=== PATIENT | male | born 1970 | race Caucasian/White ===

== ENCOUNTER 2022-01-13 14:51 | Emergency (ER) | payer SELFPAY ==
[2022-01-13 14:54] VITALS: BP 220/120; PULSE 90; RESP 18; TEMP 36.6; O2SAT 97; BMI 33.0
[2022-01-13 15:23] LABS: Add Manual Diff / Slide Review NO; Basophils Absolute Auto 0 /uL (0-100); Basophils Percent Auto 0.5 % (0-2); Eosinophils Absolute Auto 100 /uL (0-450); Eosinophils Percent Auto 1.3 % (2-4); Hematocrit 46.1 % (41-53); Hemoglobin 15.3 g/dL (13.5-17.5); Lymphocytes Absolute Auto 2300 /uL (1100-4500); Lymphocytes Percent Auto 29.8 % (25-40); Mean Corpuscular HGB Conc 33.1 % (30-36); Mean Corpuscular Volume 84.4 fL (80-100); Monocytes Absolute Auto 700 /uL (0-900); Monocytes Percent Auto 8.6 % (3-14); Neutrophils Absolute Auto 4600 /uL (1500-7000); Neutrophils Percent Auto 59.8 % (50-75); Platelet Count 232 X10^3/uL (150-400); Red Blood Cell Count 5.46 X10^6/uL (4.5-5.9); Red Cell Distribution Width 13.1 % (11.6-14.8); White Blood Cell Count 7.7 X10^3/uL (4.5-11.0)
[2022-01-13 15:41] LABS: Alanine Aminotransferase 51 IU/L (<50); Albumin 4.7 g/dL (3.5-5.0); Albumin Globulin Ratio 1.5 (1.0-2.8); Alkaline Phosphatase 83 U/L (38-126); Aspartate Aminotransferase 38 IU/L (17-59); BUN Creatinine Ratio 13.1 (6-22); Bilirubin Total 0.8 mg/dL (0.2-1.3); Blood Urea Nitrogen 13 mg/dL (9-20); Calcium 9.2 mg/dL (8.4-10.2); Carbon Dioxide 28 mmol/L (22-32); Chloride 104 mmol/L (98-107); Creatine Kinase 480 U/L (55-170); Estimated Glomerular Filt Rate > 60 mL/min (>60); Globulin 3.1 g/dL (1.7-4.1); Glucose 142 mg/dL (70-100); HEMOLYSIS 31 (0-50); Lipase 37 U/L (23-300); Magnesium 2.1 mg/dL (1.6-2.3); Sodium 142 mmol/L (137-145); Total Protein 7.8 g/dL (6.3-8.2)
[2022-01-13 15:51] LABS: Troponin I < 0.012 ng/mL (0.01-0.034)
[2022-01-13 15:55] LABS: CKMB % Relative Index 0.8 % (1.5-5.0); Creatine Kinase MB 3.73 ng/mL (<2.37)
--- NOTE | 2022-01-13 17:36 | PC.NURSE ---
Talked with pt about his HTN 214/113. It appears his primary reason for not treating HTN is no insurance and limited household income. Arrives today with weeping LRE cellulitis. LRE is dark purple in color, overly warm, pitting edema and skin breakdown. LLE has pitting edema, as well.
--- NOTE | 2022-01-13 17:43 | PC.NURSE ---
Hx of LRE cellulitis over the past year.
[2022-01-13 17:45] LABS: Lactate (Lactic Acid) 1.9 mmol/L (0.7-2.1)
[2022-01-13 17:46] VITALS: BP 214/113; PULSE 76; RESP 18; O2SAT 97
--- NOTE | 2022-01-13 17:55 | ED_ITS ---
HPI - Wound/Laceration <Shannan Verma PA-C - Last Filed: 01/13/22 19:27> General Chief Complaint: Wound/Laceration Stated Complaint: Cellulitis in Rt Leg, High BP Time Seen by Provider: 01/13/22 17:18 Source: patient Mode of arrival: Ambulatory History of Present Illness HPI narrative: 51-year-old male presents with concern for possible cellulitis of his right lower leg. Patient states that he had a similar infection last year that was ?much worse? in September 2020. Currently he is concerned because he thinks that he scraped his leg in the last 3-7 days while compressing/staning on some trash. He was wearing pants but an abrasion/scrape occurred on the front of his trinh and has become infected. He says in the last 2-3 days he has noticed some redness developing and clearish yellow slight drainage started today. States that last year when this occurred he was seen at urgent care and got a shot of m edication and was sent home on antibiotic which he thinks was Keflex. Patient does state that ever since he had the infection last year his leg has remained purplish and never returned to normal coloration. He feels like he has normal sensation in his lower extremities, he has had slight discomfort and pain associated with this developing infection but denies difficulty with walking, pain in his knee or ankle joint; he endorses chronic swelling in his feet and lower extremities and does not feel it has changed since the infection developed. He also denies fevers, chills, nausea, vomiting, fatigue, shortness of breath, dizziness, chest pain or any other symptoms. Patient endorses a history of chronic hypertension he states he was on blood pressure medicine ?a long time ago?. He does not currently have a PCP. He is concerned about it and is interested in starting blood pressure medication. He is a long-time smoker, smokes about 5 cigarettes a day. Related Data Previous Rx's Medication Instructions Recorded doxycycline hyclate 100 mg capsule 100 mg PO BID 10 days #20 caps 01/13/22 hydrochlorothiazide 25 mg tablet 25 mg PO DAILY HTN #90 tabs 01/13/22 Allergies Allergy/AdvReac Type Severity Reaction Status Date / Time No Known Drug Allergies Allergy Unverified 01/13/22 14:29 Review of Systems <Shannan Verma PA-C - Last Filed: 01/13/22 19:27> Review of Systems Narrative: Unremarkable except as noted in the HPI Patient History <Shannan Verma PA-C - Last Filed: 01/13/22 19:27> Social History Smoking Status: Current some day smoker Smoking Status: Current some day smoker alcohol intake frequency: 0-2 drinks per day Substance Use Type: methamphetamine Exam <Shannan Verma PA-C - Last Filed: 01/13/22 19:27> Narrative Exam Narrative: GENERAL: 51 year old patient appears stated age. Obese, chronically ill- appearing, Well-developed patient, in mild distress. HEAD: Atraumatic. Normocephalic. EYES: Pupils equal round and reactive. Extraocular motions intact. No scleral icterus. No injection or drainage. ENT: Nose without bleeding, purulent drainage. Airway patent. NECK: Trachea midline. CARDIOVASCULAR: Regular rate and rhythm without murmurs, gallops, or rubs. RESPIRATORY: Clear to auscultation. Breath sounds equal bilaterally. No wheezes, rales, or rhonchi. GASTROINTESTINAL: Abdomen protuberant nondistended. EXTREMITIES: Patient has moderate bilateral nonpitting edema in both lower extremities and feet. Calves and ankles are equal in size. The anterior right trinh has an area of purplish discoloration consistent with chronic venous stasis/scarring approximately 8 by 8 in. Near the superior border of this region there is an area of moderate erythema with slight tenderness, slight swelling, and mild drainage that is serous appearing in nature, clearish yellow. No other edema or joint tenderness. NEURO: AOx3. SKIN: See EXTREMITIES No rash or erythema of visible areas Initial Vital Signs Initial Vital Signs: Vital Signs Temperature 98 F 01/13/22 14:54 Pulse Rate 90 01/13/22 14:54 Respiratory Rate 18 01/13/22 14:54 Blood Pressure 220/120 H 01/13/22 14:54 Pulse Oximetry 97 01/13/22 14:54 Oxygen Delivery Method 01/13/22 14:54 <Aileen Tirado DO - Last Filed: 01/17/22 13:44> Initial Vital Signs Initial Vital Signs: Vital Signs Temperature 98 F 01/13/22 14:54 Pulse Rate 90 01/13/22 14:54 Respiratory Rate 18 01/13/22 14:54 Blood Pressure 220/120 H 01/13/22 14:54 Pulse Oximetry 97 01/13/22 14:54 Oxygen Delivery Method 01/13/22 14:54 Course <Shannan Verma PA-C - Last Filed: 01/13/22 19:27> Orders Ordered: Discontinued Medications Doxycycline Hyclate (Doxycycline Hyclate 100 Mg Tablet) 100 mg PO NOW ONE Stop: 01/13/22 18:16 Last Admin: 01/13/22 18:25 Dose: 100 mg Documented By: CARMELINA Hydrochlorothiazide (Hydrochlorothiazide 25 Mg Tablet) 25 mg PO NOW ONE Stop: 01/13/22 17:55 Last Admin: 01/13/22 18:00 Dose: 25 mg Documented By: CARMELINA(2) Labetalol HCl (Labetalol 20 Mg/4 Ml Syringe) 10 mg IV NOW ONE Stop: 01/13/22 17:55 Last Admin: 01/13/22 18:01 Dose: 10 mg Documented By: CARMELINA(2) Vital Signs Vital signs: Vital Signs - 8 hr 01/13/22 14:54 01/13/22 17:46 01/13/22 18:37 Temperature 98 F Pulse Rate 90 76 75 Respiratory Rate 18 18 Blood Pressure 220/120 H 214/113 H 185/100 H Pulse Oximetry 97 97 Oxygen Delivery Method Room Air Room Air 01/13/22 18:38 Temperature Pulse Rate 75 Respiratory Rate 18 Blood Pressure 185/100 H Pulse Oximetry 97 Oxygen Delivery Method Room Air <Aileen Tirado DO - Last Filed: 01/17/22 13:44> Orders Ordered: Discontinued Medications Doxycycline Hyclate (Doxycycline Hyclate 100 Mg Tablet) 100 mg PO NOW ONE Stop: 01/13/22 18:16 Last Admin: 01/13/22 18:25 Dose: 100 mg Documented By: CARMELINA Hydrochlorothiazide (Hydrochlorothiazide 25 Mg Tablet) 25 mg PO NOW ONE Stop: 01/13/22 17:55 Last Admin: 01/13/22 18:00 Dose: 25 mg Documented By: CARMELINA(2) Labetalol HCl (Labetalol 20 Mg/4 Ml Syringe) 10 mg IV NOW ONE Stop: 01/13/22 17:55 Last Admin: 01/13/22 18:01 Dose: 10 mg Documented By: CARMELINA(2) Vital Signs Vital signs: Vital Signs - 8 hr 01/13/22 14:54 01/13/22 17:46 01/13/22 18:37 Temperature 98 F Pulse Rate 90 76 75 Respiratory Rate 18 18 Blood Pressure 220/120 H 214/113 H 185/100 H Pulse Oximetry 97 97 Oxygen Delivery Method Room Air Room Air 01/13/22 18:38 Temperature Pulse Rate 75 Respiratory Rate 18 Blood Pressure 185/100 H Pulse Oximetry 97 Oxygen Delivery Method Room Air MDM - Wound/Laceration <Shannan Verma PA-C - Last Filed: 01/13/22 19:27> Lab Data Result diagrams: 01/13/22 15:10 01/13/22 15:10 Labs: Lab Results 01/13/22 01/13/22 01/13/22 Range/Units 15:10 15:10 15:10 WBC 7.7 (4.5-11.0) X10^3/uL RBC 5.46 (4.5-5.9) X10^6/uL Hgb 15.3 (13.5-17.5) g/dL Hct 46.1 (41-53) % MCV 84.4 (80-100) fL MCH 28.0 (26-34) PG MCHC 33.1 (30-36) % RDW 13.1 (11.6-14.8) % Plt Count 232 (150-400) X10^3/uL Neut % (Auto) 59.8 (50-75) % Lymph % (Auto) 29.8 (25-40) % [place] % (Auto) 8.6 (3-14) % Eos % (Auto) 1.3 L (2-4) % Baso % (Auto) 0.5 (0-2) % Neut # (Auto) 4600 (4237-3100) /uL Lymph # (Auto) 2300 (2978-8587) /uL [place] # (Auto) 700 (0-900) /uL Eos # (Auto) 100 (0-450) /uL Baso # (Auto) 0 (0-100) /uL Sodium 142 (137-145) mmol/L Potassium 4.0 (3.4-5.1) mmol/L Chloride 104 (98-107) mmol/L Carbon Dioxide 28 (22-32) mmol/L BUN 13 (9-20) mg/dL Creatinine 0.99 (0.66-1.25) mg/dL Estimated GFR > 60 (>60) mL/min BUN/Creatinine Ratio 13.1 (6-22) Glucose 142 H (70-100) mg/dL Lactate 1.9 (0.7-2.1) mmol/L Calcium 9.2 (8.4-10.2) mg/dL Magnesium 2.1 (1.6-2.3) mg/dL Total Bilirubin 0.8 (0.2-1.3) mg/dL AST 38 (17-59) IU/L ALT 51 H (<50) IU/L Alkaline Phosphatase 83 (38-126) U/L Total Creatine Kinase 480 H (55-170) U/L CK-MB (CK-2) 3.73 H (<2.37) ng/mL CK-MB (CK-2) Rel Index 0.8 L (1.5-5.0) % Troponin I < 0.012 (0.01-0.034) ng/mL Total Protein 7.8 (6.3-8.2) g/dL Albumin 4.7 (3.5-5.0) g/dL Globulin 3.1 (1.7-4.1) g/dL Albumin/Globulin Ratio 1.5 (1.0-2.8) Lipase 37 (23-300) U/L Procalcitonin (<0.5) ng/mL A. baumannii (PCR) (Not Detect) Nancy albicans (PCR) (Not Detect) C. glabrata (PCR) (Not Detect) C. krusei (PCR) (Not Detect) C. parapsilosis (PCR) (Not Detect) C. tropicalis (PCR) (Not Detect) Enterobacteriac sp PCR (Not Detect) E. cloacae complex PCR (Not Detect) Enterococcus sp PCR (Not Detect) E. coli (PCR) (Not Detect) H. influenzae (PCR) (Not Detect) Klebsiella oxytoca PCR (Not Detect) Klebsiella pneumoniae (Not Detect) List. monocytogenes PCR (Not Detect) N. meningitidis (PCR) (Not Detect) Proteus species (PCR) (Not Detect) Serratia marcescens PCR (Not Detect) Staphylococcus sp PCR (Not Detect) Staph aureus (PCR) (Not Detect) mecA-Methicil Res Gene Streptococcus sp PCR (Not Detect) Group A Strep (PCR) (Not Detect) Strep agalactiae (PCR) (Not Detect) Strep pneumoniae (PCR) (Not Detect) P. aeruginosa (PCR) (Not Detect) Akua/B-Vanco Res Genes KPC-Carbap Res Gene PCR (Not Detect) 01/13/22 01/13/22 Range/Units 15:10 18:45 WBC (4.5-11.0) X10^3/uL RBC (4.5-5.9) X10^6/uL Hgb (13.5-17.5) g/dL Hct (41-53) % MCV (80-100) fL MCH (26-34) PG MCHC (30-36) % RDW (11.6-14.8) % Plt Count (150-400) X10^3/uL Neut % (Auto) (50-75) % Lymph % (Auto) (25-40) % [place] % (Auto) (3-14) % Eos % (Auto) (2-4) % Baso % (Auto) (0-2) % Neut # (Auto) (7330-5479) /uL Lymph # (Auto) (6873-5924) /uL [place] # (Auto) (0-900) /uL Eos # (Auto) (0-450) /uL Baso # (Auto) (0-100) /uL Sodium (137-145) mmol/L Potassium (3.4-5.1) mmol/L Chloride (98-107) mmol/L Carbon Dioxide (22-32) mmol/L BUN (9-20) mg/dL Creatinine (0.66-1.25) mg/dL Estimated GFR (>60) mL/min BUN/Creatinine Ratio (6-22) Glucose (70-100) mg/dL Lactate (0.7-2.1) mmol/L Calcium (8.4-10.2) mg/dL Magnesium (1.6-2.3) mg/dL Total Bilirubin (0.2-1.3) mg/dL AST (17-59) IU/L ALT (<50) IU/L Alkaline Phosphatase (38-126) U/L Total Creatine Kinase (55-170) U/L CK-MB (CK-2) (<2.37) ng/mL CK-MB (CK-2) Rel Index (1.5-5.0) % Troponin I (0.01-0.034) ng/mL Total Protein (6.3-8.2) g/dL Albumin (3.5-5.0) g/dL Globulin (1.7-4.1) g/dL Albumin/Globulin Ratio (1.0-2.8) Lipase (23-300) U/L Procalcitonin 0.05 (<0.5) ng/mL A. baumannii (PCR) Detected H (Not Detect) Nancy albicans (PCR) Not detected (Not Detect) C. glabrata (PCR) Not detected (Not Detect) C. krusei (PCR) Not detected (Not Detect) C. parapsilosis (PCR) Not detected (Not Detect) C. tropicalis (PCR) Not detected (Not Detect) Enterobacteriac sp PCR Not detected (Not Detect) E. cloacae complex PCR Not detected (Not Detect) Enterococcus sp PCR Not detected (Not Detect) E. coli (PCR) Not detected (Not Detect) H. influenzae (PCR) Not detected (Not Detect) Klebsiella oxytoca PCR Not detected (Not Detect) Klebsiella pneumoniae Not detected (Not Detect) List. monocytogenes PCR Not detected (Not Detect) N. meningitidis (PCR) Not detected (Not Detect) Proteus species (PCR) Not detected (Not Detect) Serratia marcescens PCR Not detected (Not Detect) Staphylococcus sp PCR Not detected (Not Detect) Staph aureus (PCR) Not detected (Not Detect) mecA-Methicil Res Gene Not Reportable Streptococcus sp PCR Not detected (Not Detect) Group A Strep (PCR) Not detected (Not Detect) Strep agalactiae (PCR) Not detected (Not Detect) Strep pneumoniae (PCR) Not detected (Not Detect) P. aeruginosa (PCR) Not detected (Not Detect) Akua/B-Vanco Res Genes Not Reportable KPC-Carbap Res Gene PCR Not detected (Not Detect) MDM Narrative Medical decision making narrative: 51-year-old male with chronic hypertension presents with concern for cellulitis. Exam is consistent with a developing cellulitis, there is no evidence of abscess, labs today are unremarkable for significant infection or other abnormality including procalcitonin, CBC, lactic, blood cultures are obtained for further evaluation. As well as a wound culture. Patient is nontoxic appearing, with unremarkable vitals with exception of the blood pressure of 214/113, low concern for sepsis. Patient does have a history of MRSA, starting him on doxycycline. First dose of doxycycline today in the emergency departme nt. Patient was noted to be slightly hyperglycemic today suspect this is chronic for him. Patient did also agree to prescription for antihypertensive medication, prescription for HCTZ provided today. Additionally 1st dose of HCTZ as well as 10mg of labetalol in the ED with monitoring for evaluation. Patient strongly encouraged to work on getting a PCP and follow up with them for further evaluation and management. <Aileen Tirado, DO - Last Filed: 01/17/22 13:44> Lab Data Labs: Lab Results 01/13/22 01/13/22 01/13/22 Range/Units 15:10 15:10 15:10 WBC 7.7 (4.5-11.0) X10^3/uL RBC 5.46 (4.5-5.9) X10^6/uL Hgb 15.3 (13.5-17.5) g/dL Hct 46.1 (41-53) % MCV 84.4 (80-100) fL MCH 28.0 (26-34) PG MCHC 33.1 (30-36) % RDW 13.1 (11.6-14.8) % Plt Count 232 (150-400) X10^3/uL Neut % (Auto) 59.8 (50-75) % Lymph % (Auto) 29.8 (25-40) % [place] % (Auto) 8.6 (3-14) % Eos % (Auto) 1.3 L (2-4) % Baso % (Auto) 0.5 (0-2) % Neut # (Auto) 4600 (4056-4924) /uL Lymph # (Auto) 2300 (4157-6792) /uL [place] # (Auto) 700 (0-900) /uL Eos # (Auto) 100 (0-450) /uL Baso # (Auto) 0 (0-100) /uL Sodium 142 (137-145) mmol/L Potassium 4.0 (3.4-5.1) mmol/L Chloride 104 (98-107) mmol/L Carbon Dioxide 28 (22-32) mmol/L BUN 13 (9-20) mg/dL Creatinine 0.99 (0.66-1.25) mg/dL Estimated GFR > 60 (>60) mL/min BUN/Creatinine Ratio 13.1 (6-22) Glucose 142 H (70-100) mg/dL Lactate 1.9 (0.7-2.1) mmol/L Calcium 9.2 (8.4-10.2) mg/dL Magnesium 2.1 (1.6-2.3) mg/dL Total Bilirubin 0.8 (0.2-1.3) mg/dL AST 38 (17-59) IU/L ALT 51 H (<50) IU/L Alkaline Phosphatase 83 (38-126) U/L Total Creatine Kinase 480 H (55-170) U/L CK-MB (CK-2) 3.73 H (<2.37) ng/mL CK-MB (CK-2) Rel Index 0.8 L (1.5-5.0) % Troponin I < 0.012 (0.01-0.034) ng/mL Total Protein 7.8 (6.3-8.2) g/dL Albumin 4.7 (3.5-5.0) g/dL Globulin 3.1 (1.7-4.1) g/dL Albumin/Globulin Ratio 1.5 (1.0-2.8) Lipase 37 (23-300) U/L Procalcitonin (<0.5) ng/mL A. baumannii (PCR) (Not Detect) Nancy albicans (PCR) (Not Detect) C. glabrata (PCR) (Not Detect) C. krusei (PCR) (Not Detect) C. parapsilosis (PCR) (Not Detect) C. tropicalis (PCR) (Not Detect) Enterobacteriac sp PCR (Not Detect) E. cloacae complex PCR (Not Detect) Enterococcus sp PCR (Not Detect) E. coli (PCR) (Not Detect) H. influenzae (PCR) (Not Detect) Klebsiella oxytoca PCR (Not Detect) Klebsiella pneumoniae (Not Detect) List. monocytogenes PCR (Not Detect) N. meningitidis (PCR) (Not Detect) Proteus species (PCR) (Not Detect) Serratia marcescens PCR (Not Detect) Staphylococcus sp PCR (Not Detect) Staph aureus (PCR) (Not Detect) mecA-Methicil Res Gene Streptococcus sp PCR (Not Detect) Group A Strep (PCR) (Not Detect) Strep agalactiae (PCR) (Not Detect) Strep pneumoniae (PCR) (Not Detect) P. aeruginosa (PCR) (Not Detect) Akua/B-Vanco Res Genes KPC-Carbap Res Gene PCR (Not Detect) 01/13/22 01/13/22 Range/Units 15:10 18:45 WBC (4.5-11.0) X10^3/uL RBC (4.5-5.9) X10^6/uL Hgb (13.5-17.5) g/dL Hct (41-53) % MCV (80-100) fL MCH (26-34) PG MCHC (30-36) % RDW (11.6-14.8) % Plt Count (150-400) X10^3/uL Neut % (Auto) (50-75) % Lymph % (Auto) (25-40) % [place] % (Auto) (3-14) % Eos % (Auto) (2-4) % Baso % (Auto) (0-2) % Neut # (Auto) (7080-5638) /uL Lymph # (Auto) (9746-2588) /uL [place] # (Auto) (0-900) /uL Eos # (Auto) (0-450) /uL Baso # (Auto) (0-100) /uL Sodium (137-145) mmol/L Potassium (3.4-5.1) mmol/L Chloride (98-107) mmol/L Carbon Dioxide (22-32) mmol/L BUN (9-20) mg/dL Creatinine (0.66-1.25) mg/dL Estimated GFR (>60) mL/min BUN/Creatinine Ratio (6-22) Glucose (70-100) mg/dL Lactate (0.7-2.1) mmol/L Calcium (8.4-10.2) mg/dL Magnesium (1.6-2.3) mg/dL Total Bilirubin (0.2-1.3) mg/dL AST (17-59) IU/L ALT (<50) IU/L Alkaline Phosphatase (38-126) U/L Total Creatine Kinase (55-170) U/L CK-MB (CK-2) (<2.37) ng/mL CK-MB (CK-2) Rel Index (1.5-5.0) % Troponin I (0.01-0.034) ng/mL Total Protein (6.3-8.2) g/dL Albumin (3.5-5.0) g/dL Globulin (1.7-4.1) g/dL Albumin/Globulin Ratio (1.0-2.8) Lipase (23-300) U/L Procalcitonin 0.05 (<0.5) ng/mL A. baumannii (PCR) Detected H (Not Detect) Nancy albicans (PCR) Not detected (Not Detect) C. glabrata (PCR) Not detected (Not Detect) C. krusei (PCR) Not detected (Not Detect) C. parapsilosis (PCR) Not detected (Not Detect) C. tropicalis (PCR) Not detected (Not Detect) Enterobacteriac sp PCR Not detected (Not Detect) E. cloacae complex PCR Not detected (Not Detect) Enterococcus sp PCR Not detected (Not Detect) E. coli (PCR) Not detected (Not Detect) H. influenzae (PCR) Not detected (Not Detect) Klebsiella oxytoca PCR Not detected (Not Detect) Klebsiella pneumoniae Not detected (Not Detect) List. monocytogenes PCR Not detected (Not Detect) N. meningitidis (PCR) Not detected (Not Detect) Proteus species (PCR) Not detected (Not Detect) Serratia marcescens PCR Not detected (Not Detect) Staphylococcus sp PCR Not detected (Not Detect) Staph aureus (PCR) Not detected (Not Detect) mecA-Methicil Res Gene Not Reportable Streptococcus sp PCR Not detected (Not Detect) Group A Strep (PCR) Not detected (Not Detect) Strep agalactiae (PCR) Not detected (Not Detect) Strep pneumoniae (PCR) Not detected (Not Detect) P. aeruginosa (PCR) Not detected (Not Detect) Akua/B-Vanco Res Genes Not Reportable KPC-Carbap Res Gene PCR Not detected (Not Detect) Discharge Plan Departure Patient Disposition: Home Clinical Impression: Cellulitis of right lower extremity without foot, Hypertension Instructions: DI for Cellulitis -- Adult, Essential Hypertension Activity Restrictions/Additional Instructions: Thank you for letting us be part of your care today in the emergency department. We got some basic labs on you today and some labs specifically to evaluate for severe infection. Some of these are still pending including her blood cultures. If these do come back positive for any reason he will get a call and you may need to be started on stronger antibiotics, come back to the ED. otherwise her labs were looking okay today you have slightly elevated blood sugars which I suspect may be chronic for you. As we discussed I prescribed medication to treat your high blood pressure, though this may not be enough medication for the right combination of medications to get it fully under control it is a good place to start. I strongly encourage you to work on getting on state insurance or talk to her job about health insurance so that you can establish a primary care provider for regular checkups. For the cellulitis of your leg I prescribed doxycycline please take it for the entire 10 days even if your feeling better. There is no evidence of an emergent or life threatening illness at this time, but follow up with your doctor in 1-2 days is recommended nonetheless to continue to rule out serious underlying causes of your symptoms. Please call the office for an appointment. Please return to the Emergency Department for any worsening or persistent symptoms. Please take medications as directed. You do feel that your infection is worsening, including increasing drainage or yellowish green drainage, increasing pain, tenderness, redness or swelling or if you develop fevers, chills, nausea, vomiting, pain with moving or ankle or knee please report to the emergency department immediately for further evaluation. Kaitlynn stahl I encourage you to follow-up with primary care or urgent care for recheck. Prescriptions: New doxycycline hyclate 100 mg capsule 100 mg PO BID 10 Days Qty: 20 0RF hydrochlorothiazide 25 mg tablet 25 mg PO DAILY Qty: 90 0RF Referrals: Miscellaneous,Doctor, [Primary Care Provider] - Visit Report Forms: Patient Portal/API <Aileen Tirado DO - Last Filed: 01/17/22 13:44> Cosign ED Attending Artemioature Attestation: I was immediately available in the department for consultation. Documentation has been reviewed. I agree with assessment and plan.
[2022-01-13] MEDS: hydroCHLOROthiazide 25 MG TABLET PO (18:00)
[2022-01-13] MEDS: LABETALOL 20 MG/4 ML SYRINGE 10 MG IV (18:01)
[2022-01-13 18:03] LABS: Procalcitonin 0.05 ng/mL (<0.5)
[2022-01-13] MEDS: DOXYCYCLINE HYCLATE 100 MG TABLET PO (18:25)
[2022-01-13 18:37] VITALS: BP 185/100; PULSE 75
[2022-01-13 18:38] VITALS: BP 185/100; PULSE 75; RESP 18; O2SAT 97
[2022-01-14 11:33] LABS: Acinetobacter baumannii Detected (Not Detect); Candida albicans Not Detected (Not Detect); Candida glabrata Not Detected (Not Detect); Candida krusei Not Detected (Not Detect); Candida parapsilosis Not Detected (Not Detect); Candida tropicalis Not Detected (Not Detect); E. coli Not Detected (Not Detect); Enterobacter cloacae complex Not Detected (Not Detect); Enterobacteriaceae species Not Detected (Not Detect); Enterococcus species Not Detected (Not Detect); Haemophilus influenzae Not Detected (Not Detect); KPC (carbapenem-resist gene) Not Detected (Not Detect); Listeria monocytogenes Not Detected (Not Detect); Neisseria meningitidis Not Detected (Not Detect); Proteus species Not Detected (Not Detect); Pseudomonas aeruginosa Not Detected (Not Detect); Serratia marcescens Not Detected (Not Detect); Staphylococcus species Not Detected (Not Detect); Streptococcus agalactiae (Gr B Not Detected (Not Detect); Streptococcus pneumonia Not Detected (Not Detect); Streptococcus pyogenes (Gr A) Not Detected (Not Detect); Streptococcus species Not Detected (Not Detect)
== END 2022-01-13 18:49 | disposition home or self-care (01) ==
PROVIDERS: Emergency Medicine; Emergency Provider Student in an Organized Health Care Education/Training Program
DX: L03.115 Cellulitis of right lower limb (principal); I10 Essential (primary) hypertension; R73.9 Hyperglycemia, unspecified
CPT/HCPCS: 36415; 80053; 82550; 82553; 83605; 83690; 83735; 84145; 84484; 85025; 87040; 87070; 87075; 87077; 87147; 87150; 87186; 87205; 93005; 96374; 99284